=== PATIENT | male | born 1980 | race Two or more races ===

== ENCOUNTER 2025-04-13 19:01 | Emergency (ER) | payer SELFPAY ==
[~2025-04-13] VITALS: Ht 167.6 cm; Wt 64.0 kg
[2025-04-13 19:04] VITALS: O2SAT 98
[2025-04-13] MEDS ORDERED: NIRM1TAB8 PO (20:06)
[2025-04-13 20:27] VITALS: BP 113/54; PULSE 69; RESP 16; TEMP 36.7; O2SAT 99
[2025-04-13 21:31] LABS: INFLUENZA TYPE A Presumptive Negative (Pres. Neg.)
[2025-04-13 21:32] LABS: INFLUENZA TYPE B Presumptive Negative (Pres. Neg.)
== END 2025-04-13 20:48 | disposition home or self-care (01) ==
LOC: ER 19:01
DX: U07.1 COVID-19 (principal); F19.90 Other psychoactive substance use, unspecified, uncomplicated
CPT/HCPCS: 87426; 87804; 99283